=== PATIENT | male | born 1960 | race African-American/Black ===

== ENCOUNTER 2016-11-09 12:57 | Emergency (ER) | payer OTHER ==
[2016-11-09 13:09] VITALS: BP 140/92
--- NOTE | 2016-11-09 13:34 | ED Physician Documentation ---
History of Present Illness - Stated complaint Stated Complaint: BACK PX - Chief complaint Chief Complaint: Wound - History obtained from History obtained from: Patient - History of Present Illness Timing: Unknown Pain level max: 0 Pain level now: 0 Improved by: nothing Worsened by: nothing - Additonal information Additional information: Patient is a 56-year-old male who presents to the emergency department with a tick bite from a recent trip to [place]. The tick is still attached. Review of Systems Constitutional: denies: Fever, Chills GI: denies: Vomiting Skin: denies: Rash Musculoskeletal: denies: Neck pain, Back pain Neurologic: denies: Headache PD PAST MEDICAL HISTORY - Past Medical History Past Medical History: No - Past Surgical History Past Surgical History: Yes General: Appendectomy - Allergies Allergies/Adverse Reactions: Allergies Allergy/AdvReac Type Severity Reaction Status Date / Time No Known Drug Allergies Allergy Verified 11/09/16 13:09 - Social History Does the pt smoke?: Yes Smoking Status: Current every day smoker Does the pt drink ETOH?: No Does the pt have substance abuse?: No - Immunizations Immunizations are current?: Yes PD ED PE NORMAL - Vitals Vital signs reviewed: Yes - General General: Alert and oriented X 3, No acute distress - Back Back: Other (tick attached to the R upper back. mild induration and erythema) - Derm Derm: Warm and dry - Neuro Neuro: Alert and oriented X 3 - Psych Psych: Normal mood, Normal affect Results - Vitals Vitals: Vital Signs - 24 hr 11/09/16 13:07 Temperature 36.5 C Heart Rate 54 L Respiratory 18 Rate Blood Pressure 140/92 H O2 Saturation 96 Oxygen O2 Source Room air PD MEDICAL DECISION MAKING - ED course Complexity details: considered differential, d/w patient ED course: Tick was removed with forceps in the emergency department. Tolerated well. No signs of infection. Tick appears to be a [place] tick. Warnings of infection and instructions on wound care given at bedside. Patient counseled regarding signs and symptoms for which I believe and urgent re-evaluation would be necessary. Patient with good understanding of and agreement to plan and is comfortable going home at this time This document was made in part using voice recognition software. While efforts are made to proofread this document, sound alike and grammatical errors may occur. Departure - Departure Disposition: 01 Home, Self Care Clinical Impression: Tick bite with subsequent removal of tick Condition: Good Instructions: ED Bite Tick No Abx Tx Follow-Up: Nano Randall DO [Primary Care Provider] - Within 1 week Comments: Return if you worsen. The redness and swelling should go away in a few days.
== END 2016-11-09 13:43 | disposition home or self-care (01) ==
LOC: ED 12:57
DX: S20.461A Insect bite (nonvenomous) of right back wall of thorax, initial encounter (principal); W57.XXXA Bitten or stung by nonvenomous insect and other nonvenomous arthropods, initial encounter; F17.200 Nicotine dependence, unspecified, uncomplicated
CPT/HCPCS: 99282; 99283

== ENCOUNTER 2020-05-03 11:59 | Emergency (ER) | payer BC, OTHER ==
[2020-05-03 12:08] VITALS: BP 170/95
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
== END 2020-05-03 13:00 | disposition home or self-care (01) ==
LOC: ED 11:59
DX: M54.2 Cervicalgia (principal); V68.0XXA Driver of heavy transport vehicle injured in noncollision transport accident in nontraffic accident, initial encounter; Y92.89 Other specified places as the place of occurrence of the external cause; Y99.0 Civilian activity done for income or pay; M47.812 Spondylosis without myelopathy or radiculopathy, cervical region; I10 Essential (primary) hypertension; F17.200 Nicotine dependence, unspecified, uncomplicated
CPT/HCPCS: 72125; 99282; 99283

== ENCOUNTER 2022-04-17 23:13 | Outpatient (CLI) | payer SELFPAY | END 2022-04-17 23:14 | disposition EMS.NT | LOC: EMS 23:13 | DX: F10.129 Alcohol abuse with intoxication, unspecified (principal); R53.83 Other fatigue ==

== ENCOUNTER 2023-09-16 14:21 | Outpatient (CLI) | payer SELFPAY | END 2023-09-16 23:59 | disposition EMS.NT | LOC: EMS 14:21 | DX: Z03.89 Encounter for observation for other suspected diseases and conditions ruled out (principal) ==